=== PATIENT | female | born 1960 | race Caucasian/White ===

== ENCOUNTER → 2021-03-14 13:52 | Outpatient (CLI) | payer BC, SELFPAY ==
--- NOTE | ~2021-03-14 | US_ITS ---
EXAMINATION: US abdomen complete EXAM DATE: 03/14/2021 14:33 INDICATION: Abdominal pain. TECHNIQUE: Multiple grayscale and Doppler images of the complete abdomen were obtained (by a technolo gist who performed the scan) and subsequently reviewed. There is no prior study for comparison. FINDINGS: The abdominal aorta is normal in caliber. Visualized portion IVC is patent. The pancreatic head a nd body are normal in appearance. The pancreatic tail is not visualized. The liver has normal echogenicity and contour. There are no focal liver lesions identified. There is no evidence of intrahepatic biliary duct dilation. Portal venous flow was seen in the hepatopedal , normal direction and has normal Doppler waveform. Common bile duct measures 4 mm, which is normal. The gallbladder wall is normal in thickness, with ex pected amount of distention. No sonographic evidence of pericholecystic fluid. There is no cholelit hiases. Technologist performing exam reports patient did not demonstrate sonographic Bowser's sign. Please note that this sign is less reliable in patients who have received pain medication. Right kidney: There is normal contour and echogenicity. It measures 9.3 x 3.9 x 4.4 centimeters. T here are no focal renal lesions identified. There is no hydronephrosis. Left kidney: There is normal contour and echogenicity. It measures 9.6 x 4.7 x 4.4 centimeters. Th ere are no focal renal lesions identified. There is no hydronephrosis. The spleen measures 8.3 centimeters and is morphologically normal. IMPRESSION: 1. Unremarkable complete abdominal ultrasound exam. Reviewed, dictated and finalized at location G. RE ADMINISTRATOR
--- NOTE | ~2021-03-14 | US_ITS ---
EXAMINATION: US pelvic complete EXAM DATE: 03/14/2021 14:33 INDICATION: Pelvic pain. TECHNIQUE: Pelvic transabdominal sonogram was performed. There are multiple grayscale and Doppler im ages available for interpretation. There is no prior study for comparison. FINDINGS: Uterus measures 6.6 x 2.4 x 4.2 cm, and is morphologically normal. Endometrial stripe shan sures 3 mm, within normal limits. There is no free pelvic fluid. Right adnexa: The ovary is not identified. There is no adnexal mass. Left adnexa: The ovary is not identified. There is no adnexal mass. IMPRESSION: 1. Unremarkable pelvic ultrasound exam. Reviewed, dictated and finalized at location G. OL CLEANER
== END ==
PROVIDERS: Visit Provider Advanced Practice Midwife
DX: R10.9 Unspecified abdominal pain (principal)
CPT/HCPCS: 76700; 76856

== ENCOUNTER 2022-09-11 10:08 | Emergency (ER) | payer BC, SELFPAY ==
[2022-09-11 10:21] VITALS: BP 133/82; PULSE 72; RESP 16; TEMP 37.4; O2SAT 99
--- NOTE | 2022-09-11 10:39 | ED.EYEPROB ---
HPI - Eye Problem General Chief complaint: Eye Problems Stated complaint: right eye irritated Time Seen by Provider: 09/11/22 10:39 Source: patient Mode of arrival: ambulatory Limitations: no limitations History of Present Illness HPI Narrative: 62 y/o female presenting for complaint of right eye irritation today. She states yesterday the right eye was itchy, she rubbed it often. States she woke this morning and it was swollen and red. Says the eye was swollen shut, denies crust or drainage. She used a cold pack which reduced the swelling. Patient states she fell 4 days ago, and struck her nose on the ground, and is concerned the redness is related. Denies other injury or foreign body into the eye. She denies foreign body sensation, photophobia, eye pain, vision changes, headache or dizziness. MD chief complaint: eye pain Related Data Home Medications Medication Instructions Recorded Confirmed bupropion HCl 150 mg 24 hr tablet, 150 mg PO DAILY 09/11/22 09/11/22 extended release sertraline 100 mg tablet 100 mg PO DAILY 09/11/22 09/11/22 Allergies Allergy/AdvReac Type Severity Reaction Status Date / Time codeine Allergy Mild HEADACHE Verified 09/11/22 10:15 Penicillins Allergy Other Verified 09/11/22 10:15 Review of Systems Review of Systems: CONSTITUTIONAL: Denies body aches, fever, chills EYES:Endorses swelling, redness to right eye; denies FB sensation, photophobia, visual changes ENT: Denies rhinorrhea, congestion, sore throat, or otalgia. CARDIOVASCULAR: Denies chest pain, palpitations RESPIRATORY: Denies cough or dyspnea. GASTROINTESTINAL: Denies abdominal pain, nausea, vomiting, or diarrhea. SKIN: Denies rash, itching, or wounds. MUSCULOSKELETAL: Denies back pain, joint pain, or myalgia. NEUROLOGIC: Denies headache, numbness, tingling, or weakness. All systems reviewed & are unremarkable except as noted in HPI and below PMFSH Past Medical History Medical History (Updated 09/11/22 @ 10:52 by Roxi Wilkerson APRN) No pertinent past medical history Family History Family History Father Family history of coronary artery disease Social History Social History Alcohol intake: current Comments At time of signature, I have reviewed and agree with nursing past medical, surgical, social and family history unless otherwise noted. Please see nursing chart for further information. There is no relevant family history pertinent to the presenting complaint Exam Narrative: GENERAL: Well-appearing HEAD: Normocephalic, atraumatic. EYES: Right upper lid with mild erythema. Nontender, No conjunctival injection or drainage, No eye lid swelling or periorbital edema, no Stye. PERRLA, EOMI. Lid eversion shows no foreign body ENT: Mucous membranes pink and moist. No rhinorrhea. TMs normal bilaterally. Throat normal. Uvula midline. CHEST: Clear to auscultation. HEART: Regular rate and rhythm. ABDOMEN: Soft, nontender, nondistended SKIN: Warm, dry, no rash. Normal skin turgor. NEURO: No focal deficits. Alert and oriented x3 PSYCH: Normal affect. Course Course Emergency Course: Patient is aware of diagnosis, understands and agrees to treatment plan. Anticipatory guidance given. Patient agrees to follow-up as directed and is aware of reasons to seek care at the emergency department. Portions of this record may have been created with voice recognition software Level of Care: Express Care Visit Vital Signs Vital signs: Vital Signs Temperature 99.3 F 09/11/22 10:21 Pulse Rate 72 09/11/22 10:21 Respiratory Rate 16 09/11/22 10:21 Blood Pressure 133/82 09/11/22 10:21 Pulse Oximetry 99 09/11/22 10:21 Oxygen Delivery Room Air 09/11/22 10:21 Temperature 99.3 F 09/11/22 10:21 Pulse Rate 72 09/11/22 10:21 Respiratory Rate 16 09/11/22 10:21 Bloo
== END 2022-09-11 10:50 | disposition home or self-care (01) ==
PROVIDERS: Emergency Provider Nurse Practitioner Family; PCP Family Medicine
DX: H02.9 Unspecified disorder of eyelid (principal); F41.9 Anxiety disorder, unspecified; F32.A Depression, unspecified
CPT/HCPCS: 99211; G0463